=== PATIENT | female | born 1995 | race Caucasian/White ===

== ENCOUNTER 2018-07-26 17:41 | Inpatient (IN) | payer MEDICAID ==
[~2018-07-26] VITALS: Ht 165.1 cm; Wt 63.5 kg
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
--- NOTE | 2018-07-26 18:10 | NUR ---
[employer] AT BEDSIDE AND REQUESTED POTENTIAL NEED FOR SART EXAM. DR EDWARD NOTIFIED AND STATED THAT WE COULD HOLD THE URINE TEST TO TEST FOR HCG AND OTHER DRUGS IN HER SYSTEM. HE ALSO STATED TAHT HER AGITATED STATE IS A PRIORITY TO CONTROL PRIOR TO GETTING THE RESULTS OF THE HCG BLOOD TEST
--- NOTE | 2018-07-26 18:36 | NUR ---
PT RESTING COMFORTABLE IN BED. PT ONLY BECOMES AGITATED AND THRASHES WHEN TOUCHED. PT HAS EQUAL AND UNLABORED CHEST RISE. MONITORS STILL IN PLACE. SPIT MASK AND SOFT RESTRAINTS STILL IN PLACE. NO DISTRESS NOTED AT THIS TIME. [employer] AT BEDSIDE
[2018-07-26 18:45] LABS: BASOPHIL % 0.5 % (0-2); PLATELET COUNT 364 x10^3mcL (130-400); RED CELL DISTRIBUTION WIDTH 14.5 % (11.5-14.5)
[2018-07-26 18:51] LABS: CALCIUM 8.8 mg/dL (8.5-10.1); CARBON DIOXIDE 30.3 mmol/L (21-32); CHLORIDE SERUM 105 mmol/L (98-107); CREATININE SERUM 0.7 mg/dL (0.6-1.0); GFR1 > 60 mL/min; GLUCOSE SERUM 91 mg/dL (74-106); POTASSIUM SERUM 3.3 mmol/L (3.5-5.1); SODIUM SERUM 142 mmol/L (136-145)
[2018-07-26 18:56] LABS: ALBUMIN 3.7 g/dL (3.4-5.0); ALKALINE PHOSPHATASE 104 U/L (46-116); ALT/SGPT 22 U/L (14-59); AST/SGOT 17 U/L (15-37); BILIRUBIN TOTAL 0.5 mg/dL (0.20-1.00); TOTAL PROTEIN, SERUM 7.5 g/dL (6.4-8.2)
--- NOTE | 2018-07-26 19:03 | NUR ---
SPIT MASK REMOVED. PUPILS PINPOINT AND FIXED. PT HAS EQUAL AND UNLABORED CHEST RISE AND OPENS EYES TO PHYSICAL TOUCH. NO DISTRESS NOTED. [employer] AT BEDSIDE
--- NOTE | 2018-07-26 19:10 | NUR ---
REPORT GIVEN TO CINDI LUTHER
--- NOTE | 2018-07-26 20:59 | NUR ---
LLE RESTRAINT REMOVED.
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
--- NOTE | 2018-07-26 21:21 | NUR ---
RLE RESTRAINT REMOVED
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
--- NOTE | 2018-07-26 22:16 | NUR ---
RT WRIST RESTRAINT REMOVED
--- NOTE | 2018-07-27 00:22 | NUR ---
PT TAKEN TO CT
--- NOTE | 2018-07-27 00:30 | NUR ---
PT BACK FROM CT
[2018-07-27 01:49] LABS: CHOLESTEROL/HDL RATIO 4.3; MAGNESIUM 2.3 mg/dL (1.8-2.4); PHOSPHOROUS 2.6 mg/dL (2.5-4.9)
--- NOTE | 2018-07-27 02:02 | NUR ---
REPORT GIVEN TO SHIRA ON [facility]ST, ALL QUESTIONS AND CONCERNS ADDRESSED.
--- NOTE | 2018-07-27 02:16 | NUR ---
PD OK'D FOR URINARY STRAIGHT CATH, WENT TO PREFORM STRAIGHT CATH WITH ASHKAN SALGADO, PT ALERT ENOUGH TO SAY "NO"
[2018-07-27 02:42] VITALS: BP 114/65
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
[2018-07-27 05:18] VITALS: BP 123/81
--- NOTE | 2018-07-27 06:11 | NUR ---
PATIENT STILL DROWSY, RESPONDS TO TACTILE STIMULI. RESPIRATION EVEN AND UNLABORED, ON ROOM AIR. IV SITE TO LEFT ANTECUBITAL AREA PATENT AND INTACT. PLACED BED IN THE LOWEST POSITION. SAFETY OBSERVED. PLACED CALL LIGHT WITHIN REACH AT ALL TIMES.
--- NOTE | 2018-07-27 08:17 | NUR ---
AAO TO PERSON. SLEEPY, BUT AROUSABLE. TO NAME. TELE # 4 ST 101. LUNGS CTA. NO SOB. O2 SAT ON RA 97%. BS'S ACTIVE TIMES 4. PERIPHERAL PULSES PALPABLE. NO EDEMA. AWAKENED TO ME CALLING HER NAME, BUT SHE WENT BACK TO SLEEP. SHE LET ME ASSESS HER. IV SITE LAC PATENT, CDI. NO C/O PAIN.
[2018-07-27 08:40] VITALS: BP 111/65
[2018-07-27 08:43] LABS: BASOPHIL % 0.5 % (0-2); PLATELET COUNT 337 x10^3mcL (130-400)
[2018-07-27 08:48] LABS: CALCIUM 8.4 mg/dL (8.5-10.1); CARBON DIOXIDE 28.9 mmol/L (21-32); CHLORIDE SERUM 108 mmol/L (98-107); CREATININE SERUM 0.5 mg/dL (0.6-1.0); GFR1 > 60 mL/min; GLUCOSE SERUM 88 mg/dL (74-106); POTASSIUM SERUM 3.3 mmol/L (3.5-5.1); RED CELL DISTRIBUTION WIDTH 14.7 % (11.5-14.5); SODIUM SERUM 145 mmol/L (136-145)
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
[2018-07-27 11:19] LABS: microscopic required? YES; urine erythrocyte NEGATIVE (NEGATIVE)
[2018-07-27 11:29] LABS: AMPHETAMINE QUAL UR POSITIVE (See below)
[2018-07-27 12:00] VITALS: BP 115/60
--- NOTE | 2018-07-27 13:06 | NUR ---
Discount pharmacy card and list to low cost medical clinic given to patient by Joshua.
--- NOTE | 2018-07-27 15:18 | NUR ---
DR IRWIN AWARE OF THE UA RESULTS, SHE DOESNT FEEL ANTIBIOTICS ARE NEEDED AT THIS TIME.
[2018-07-27 16:48] VITALS: Ht 165.1 cm; Wt 63.5 kg
[2018-07-27 17:00] VITALS: BP 113/63
--- NOTE | 2018-07-27 18:42 | NUR ---
AAO TIMES 4. TELE # 9 SR. VS'S STABLE. SLEEPING MOST OF DAY, BUT SHE WOKE UP AND TALKED. HER MOM AND GRANDPA WERE BOTH HERE VISITING HER, SHE SLEPT THROUGH THEIR VISIT. IV SITE LAC PATENT, CDI. COOPERATIVE.
--- NOTE | 2018-07-27 19:36 | NUR ---
PT IS A/O X4. ON TELE #9, NSR. DENIES ANY CHEST PAIN OR PRESSURE. PULSES ARE PRESENT. NO EDEMA NOTED. LUNGS CLEAR IN ALL FEILDS. ON RA, DENIES ANY SOB. BOWEL SOUNDS PRESENT. OLD SCARS NOTED ON SUE ARMS. PT UNCOORAPERATIVE WITH QUESTIONS AND WITHDRAWN. CLOSES HER EYES IN MID QUESTIONS AND REFUSES TO ANSWER AT TIMES. IV ON LAC INTACT AND PATENT. NO SIGN OF IRRITATION NOTED. MOTHER AT BEDSIDE. BED IS AT LOWEST SETTING. WILL CONTINUE TO MONITOR.
--- NOTE | 2018-07-27 20:00 | NUR ---
PT WAS TRANSFERED FROM ROOM 241B INTO ROOM 246B.
[2018-07-27 21:21] VITALS: BP 122/69
--- NOTE | 2018-07-28 01:20 | NUR ---
PT IS RESTING IN BED WITH BOTH EYES CLOSED. BREATHING EVEN AND UNLABORED. NO SIGN OF DISTRESS NOTED. IV IS STOPPED D/T PITTING NOTED ON SUE ARMS. IV INTACT AND PATENT. FLUSHES WELL. NO SIGN OF INFILTRATION. WILL NOTIFIY MD. WILL CONTINUE TO MONITOR.
--- NOTE | 2018-07-28 01:30 | NUR ---
MD FINNEGAN MADE AWARE OF SUE ARMS GETTING SWOLLEN. OK PER MD TO HOLD IV FLUIDS FOR NOW.
[2018-07-28 06:03] VITALS: BP 108/69
--- NOTE | 2018-07-28 06:41 | NUR ---
PT IS RESTING IN BED WITH BOTH EYES CLOSED, BREATHING EVEN AND UNALBORED. NO SIGN OF DISTRESS NOTED. IV INTACT AND CLEAN. NO ACUTE EVENT OCCURED AT NIGHT. BED IS AT LOWEST SETTING. CALL LIGHT WITHIN REACH. WILL ENDORSE TO AM NURSE.
[2018-07-28 07:11] LABS: CALCIUM 8.4 mg/dL (8.5-10.1); CARBON DIOXIDE 28.3 mmol/L (21-32); CHLORIDE SERUM 106 mmol/L (98-107); CREATININE SERUM 0.5 mg/dL (0.6-1.0); GFR1 > 60 mL/min; GLUCOSE SERUM 93 mg/dL (74-106); POTASSIUM SERUM 4.1 mmol/L (3.5-5.1); SODIUM SERUM 141 mmol/L (136-145)
[2018-07-28 07:48] LABS: BASOPHIL % 0.6 % (0-2); PLATELET COUNT 329 x10^3mcL (130-400)
[2018-07-28 07:50] LABS: RED CELL DISTRIBUTION WIDTH 14.8 % (11.5-14.5)
--- NOTE | 2018-07-28 07:53 | NUR ---
SLEEPY BUT AROUSABLE. TELE # 9 SR. LUNGS CTA. NO SOB. O2 SAT ON RA 99%. BS'S ACTIVE TIMES 4. KATHY STRONG. IV SITE TO LAC PATENT, CDI. COOPERATIVE AT THIS MOMENT. VS'S STABLE.
[2018-07-28 08:35] VITALS: BP 115/64
--- NOTE | 2018-07-28 09:00 | NUR ---
SHE WAS ASKING WHERE HER CLOTHES WERE AND SHE WANTED TO SHOWER. HER GRANDFATHER CALLED AT 1000 TO SAY THAT HER MOTHER TOOK HER CLOTHES HOME AT HER REQUEST. SHE HAS BEEN SLEEPING AND HASNT ASKED ABOUT HER CLOTHES AGAIN, I WILL TELL HER WHEN SHE WAKES UP.
[2018-07-28] MEDS ORDERED: ZYPREXA5 M1 PO (14:11)
[2018-07-28 14:12] VITALS: BP 115/64
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
--- NOTE | 2018-07-28 15:03 | NUR ---
DC'D THE [facility] INTACT. HOMERO GAVE DISCHARGE INSTRUCTIONS AND PRESCRIPTION. HER BOYFRIEND WAS PRESENT, AND HE LEFT WITH HER.
== END 2018-07-28 14:40 | disposition home or self-care (01) | DRG 812 ==
LOC: ED 17:41 → MU 07-27 01:36 → DU 07-27 01:36 → MU 07-28 10:53
PROVIDERS: Emergency Medicine; ADMIT Internal Medicine
DX: T43.621A Poisoning by amphetamines, accidental (unintentional), initial encounter (principal); G92 Toxic encephalopathy; F15.10 Other stimulant abuse, uncomplicated; E87.6 Hypokalemia; R41.0 Disorientation, unspecified; Z91.14 Patient's other noncompliance with medication regimen; Y92.89 Other specified places as the place of occurrence of the external cause
CPT/HCPCS: 83880; G0480; J1630; J2060; J7030; Q0092

== ENCOUNTER 2019-10-11 13:23 | Emergency (ER) | payer OTHER ==
[~2019-10-11 13:23] MED LIST: ZYPREXA5 M1 PO
== END 2019-10-11 14:33 | disposition other institution (70) ==
LOC: ED 13:23
DX: Z02.89 Encounter for other administrative examinations (principal)

== ENCOUNTER 2019-10-11 13:23 | Emergency (ER) | payer SELFPAY ==
[~2019-10-11] VITALS: Ht 160 cm; Wt 56.7 kg
[2019-10-11 13:35] VITALS: Ht 160 cm; Wt 56.7 kg
[2019-10-11 14:33] VITALS: BP 148/96
== END 2019-10-11 14:33 | disposition other institution (70) ==
LOC: ED 13:23
DX: S40.212A Abrasion of left shoulder, initial encounter (principal); S80.212A Abrasion, left knee, initial encounter; S09.8XXA Other specified injuries of head, initial encounter; F17.210 Nicotine dependence, cigarettes, uncomplicated; F15.10 Other stimulant abuse, uncomplicated; J45.909 Unspecified asthma, uncomplicated; Z88.0 Allergy status to penicillin; W22.8XXA Striking against or struck by other objects, initial encounter; Y93.89 Activity, other specified; Y92.89 Other specified places as the place of occurrence of the external cause; Y99.8 Other external cause status
CPT/HCPCS: 90715; 99406

== ENCOUNTER 2020-01-04 13:24 | Emergency (ER) | payer MEDICAID ==
[~2020-01-04] VITALS: Ht 160 cm; Wt 53.5 kg
[2020-01-04 13:39] VITALS: BP 142/98; Ht 160 cm; Wt 53.5 kg
== END 2020-01-04 14:40 | disposition home or self-care (01) ==
LOC: ED 13:24
DX: F43.20 Adjustment disorder, unspecified (principal)